=== PATIENT | female | born 1995 | race Caucasian/White ===

== ENCOUNTER 2016-10-17 07:03 | Day surgery (SDC) | payer BC ==
[2016-10-17] MEDS ORDERED: MIDAZOLAM 2 MG/2 ML VIAL ONE (08:31)
[2016-10-17] MEDS ORDERED: fentaNYL 100 MCG/2 ML INJ ONE (08:31)
[2016-10-17] MEDS ORDERED: LIDOCAINE 1% 30 ML SDV ONE (08:37)
[2016-10-17] MEDS ORDERED: hydrALAZINE 20 MG/ML VIAL IVP PRN (09:09)
[2016-10-17] MEDS ORDERED: NS 1,000 ML IV SCH (09:15)
[2016-10-17 09:24] LABS: INR 1.02 (0.83-1.16); PROTIME(PATIENT) 13.3 SEC (12.0-15.0)
[2016-10-17 09:25] LABS: APTT 21.7 SEC (23.0-38.0)
[2016-10-17] MEDS ORDERED: ACETAMINOPHEN 325 MG TAB PO PRN (09:49)
[2016-10-17] MEDS ORDERED: OXYCODONE/APAP 5/325 TAB PO PRN (09:49)
[2016-10-17] MEDS ORDERED: ONDANSETRON 4 MG/2 ML VIAL IVP PRN (09:50)
[2016-10-17 11:41] LABS: HEMATOCRIT 30.7 % (38.0-47.0); HEMOGLOBIN 9.7 g/dL (12.6-16.3)
[2016-10-17 13:20] LABS: HEMATOCRIT 28.7 % (38.0-47.0); HEMOGLOBIN 9.1 g/dL (12.6-16.3)
[2016-10-17 15:36] LABS: HEMATOCRIT 28.7 % (38.0-47.0); HEMOGLOBIN 9.2 g/dL (12.6-16.3)
== END 2016-10-17 15:35 | disposition home or self-care (01) ==
LOC: FIMAGING 07:03
PROVIDERS: ATTEND Internal Medicine Rheumatology
PROC: 0TB13ZX Excision of Left Kidney, Percutaneous Approach, Diagnostic (ICD-10-PCS; principal; 2016-10-17 09:35)
DX: R80.9 Proteinuria, unspecified (principal); L93.0 Discoid lupus erythematosus
CPT/HCPCS: 88305-90; 88313-90; 88346-90; 88348-90; J2250; J3010

== ENCOUNTER 2018-01-17 18:34 | Emergency (ER) | payer BC, OTHER ==
[2018-01-17 18:45] VITALS: BP 133/91
--- NOTE | 2018-01-17 19:01 | EDPHY ---
H & P Time Seen by Provider: 01/17/18 18:53 HPI/ROS: CHIEF COMPLAINT: Right otalgia HISTORY OF PRESENT ILLNESS: 23-year-old female with history of lupus, on chronic CellCept, complaining of right otalgia , no otorrhea, no discharge. Complaining of 3 days of URI symptoms including nasal congestion, sinus pressure. No cough. No dyspnea. She has been cleaning her ear aggressive with a Q-tip, concerned about possible cerumen impaction. No chest pain. No dyspnea. No nuchal rigidity. No intraoral lesions. PRIMARY CARE PROVIDER: REVIEW OF SYSTEMS: A ten point review of systems was performed and is negative with the exception of the items mentioned in the HPI PAST MEDICAL & SURGICAL HISTORY: Lupus. On CellCept and prednisone SOCIAL HISTORY:Nonsmoker PHYSICAL EXAM (Prior to examination, patient consented to physical exam, hands were washed and my usual and customary physical exam procedures followed) 1) GENERAL: Well-developed, well-nourished, alert and oriented. Appears to be in no acute distress. 2) HEAD: Normocephalic, atraumatic 3) HEENT: Pupils equal, round, reactive to light bilaterally. Sclera anicteric. Nasopharynx, oropharynx, clear, no lesions. No tonsillar enlargement or exudate. Right ear: Erythematous and painful external auditory canal with no debris. Tympanic membrane intact with no erythema. Nonbulging. Left ear clear EAC. Ears bilaterally with normal tympanic membranes. 4) NECK: Full range of motion, no meningeal signs. 5) LUNGS: Clear auscultation bilaterally, no wheezes, no rhonchi, no retractions. 6) HEART: Regular rate and rhythm, no murmur, no heave, no gallop. 7) ABDOMEN: No guarding, no rebound, no focal tenderness, negative McBurney's, negative Johnson's, negative Rovsing's, negative peritoneal sign, 8) MUSCULOSKELETAL: Moving all extremities, no focal areas of tenderness, no obvious trauma. No peripheral edema or discoloration. 9) BACK: No CVA tenderness, no midline vertebral tenderness, no fluctuance, no step-off, no obvious trauma, no visual or palpable abnormality. 10) SKIN: No rash, no petechiae. 11) Psychiatric: Patient is oriented X 3, there is no agitation. DIFFERENTIAL DIAGNOSIS: In no particular order including but not limited to otitis media, malignant otitis externa, otitis externa, mastoiditis Smoking Status: Never smoked Constitutional: Initial Vital Signs Temperature (C) 37.5 C 01/17/18 18:43 Heart Rate 109 H 01/17/18 18:43 Respiratory Rate 18 01/17/18 18:43 Blood Pressure 133/91 H 01/17/18 18:43 O2 Sat (%) 94 01/17/18 18:43 O2 Delivery Mode Room Air Allergies/Adverse Reactions: No Known Allergies Allergy (Verified 01/17/18 18:42) Home Medications: Medication Instructions Recorded Plaquenil 200 mg (*) 200 mg DAILY 10/12/16 Synthroid 50 mcg (*) 50 mcg PO DAILY 10/12/16 Cellcept 01/17/18 Ciprofloxacin HCl/Dexameth 4 drop OT BID #1 drops.susp 01/17/18 [Ciprodex Otic Suspension] MDM/Departure - [facility] ED Course/Re-evaluation: Patient has evidence of right otitis externa. No evidence of right otitis media. Doubt malignant otitis externa. No evidence of cerumen impaction or foreign body in the right ear. She will be discharged with Ciprodex after a ear wick placed by myself. Today is Monday. Recommend close follow up with Dr. Jacob Fry ear nose and throat before the weekend given her medical history. She feels comfortable being discharged. Care of patient under supervision of secondary supervising physician Dr Elizabeth. - Depart Disposition: Home, Routine, Self-Care Clinical Impression: Right otitis externa Qualifiers: Otitis externa type: other infective Chronicity: acute Qualified Code(s): H60.391 - Other infective otitis externa, right ear Condition: Good Instructions: Ear Infection (ED), Ciprofloxacin/Dexamethasone (Into the ear) Additional Instructions: Return to the ER if you develop new or worsening symptoms. If you develop hearing loss. Prescriptions: Ciprofloxacin HCl/Dexameth [Ciprodex Otic Suspension] 4 drop OT BID #1 drops.susp Referrals: Jacob Fry MD [Medical Doctor] - 1-2 days without fail
[2018-01-17] MEDS ORDERED: CIPROFLOXACIN HC 10 ML OTIC DROPS EACHEAR ONE (19:45)
== END 2018-01-17 19:34 | disposition home or self-care (01) ==
DX: H60.391 Other infective otitis externa, right ear (principal)